=== PATIENT | male | born 1940 | race American Indian/Alaskan Native ===

== ENCOUNTER 2018-03-24 17:10 | Observation (INO) | payer MEDICARE ==
--- NOTE | 2018-03-24 17:58 | ED PDOC ---
HPI: Altered Mental Status Time Seen by Provider: 03/24/18 17:24 Chief Complaint (Nursing): Altered Mental Status Chief Complaint (Provider): Altered Mental Status History/Exam Limitations: Clinical Condition (Altered Mental Status ) Onset/Duration Of Symptoms: Hrs (today) Additional Complaint(s): Cali Pearson is a 77 year old male who has a past medical history of C-5 fracture, dementia and Parkinson who was brought to the emergency department [facility] after patient was found on the floor. It is unclear as to how the patient got there. He is normally communicative but is not responding verbally. Patient is not able to provide any history at current time. No other medical complaints. PMD: No Provider NIHSS Stroke Scale - How Severe is the Stroke Level of Consciousness: 0=Alert LOC to Questions: 2=Neither correct LOC to commands: 0=Obeys both correctly Best Gaze: 0=Normal Visual: 0=No visual loss Facial: 0=Normal Motor Arm - Left: 0=No drift Motor Arm - Right: 0=No drift Motor Leg - Left: 0=No drift Motor Leg - Right: 0=No drift Limb Ataxia: 0=Absent Sensory: 0=Normal Best Language: 3=Mute Dysarthia: 2=Severe, near unintelligible or worse Extinction & Inattention (Neglect): 0=Normal, no object Score: 7 Past Medical History Reviewed: Historical Data, Nursing Documentation, Vital Signs Vital Signs: Last Vital Signs Temp 97.6 F 03/24/18 17:11 Pulse 73 03/24/18 17:11 Resp 22 03/24/18 17:11 BP 105/64 03/24/18 17:11 Pulse Ox 97 03/24/18 17:11 - Medical History PMH: Dementia, Parkinson's Disease Other PMH: C-5 fracture - Surgical History Surgical History: No Surg Hx - Family History Family History: States: Unknown Family Hx - Living Arrangements Living Arrangements: Prison/Assist Lvng - Home Medications Home Medications: Ambulatory Orders Medication Instructions Recorded Acetaminophen [Tylenol 325mg tab] 650 mg PO Q4 PRN 03/24/18 Acetaminophen [Tylenol 325mg tab] 650 mg PO Q4 PRN 03/24/18 Apixaban [Eliquis] 5 mg PO Q12 03/24/18 Aspirin [Ecotrin] 81 mg PO DAILY 03/24/18 Atorvastatin [Lipitor] 10 mg PO HS 03/24/18 Bacitracin OINT 1 appl TOP BID 03/24/18 Carbidopa/Levodopa 25/100 mg 1.5 mg PO Q8 03/24/18 [Sinemet] Carvedilol [Coreg] 6.25 mg PO Q12 03/24/18 Donepezil [Aricept] 10 mg PO HS 03/24/18 Ergocalciferol (Vitamin D2) 50,000 unit PO SUN 03/24/18 [Vitamin D2] Gabapentin [Neurontin] 300 mg PO Q8 03/24/18 Mag Hydrox/Aluminum Hyd/Simeth 30 ml PO Q4 PRN 03/24/18 [Maalox Advanced Suspension] Magnesium Hydroxide [Milk Of 30 ml PO DAILY PRN 03/24/18 Magnesia] Tamsulosin [Flomax] 0.4 mg PO HS 03/24/18 amLODIPine [Norvasc] 10 mg PO DAILY 03/24/18 - Allergies Allergies/Adverse Reactions: Allergies Allergy/AdvReac Type Severity Reaction Status Date / Time No Known Allergies Allergy Verified 03/24/18 17:15 Review of Systems Review Of Systems: ROS cannot be obtained secondary to pt's inabilty to answer questions. Neurological: Positive for: Altered Mental Status Physical Exam - Reviewed Nursing Documentation Reviewed: Yes Vital Signs Reviewed: Yes - Physical Exam Appears: Positive for: No Acute Distress Head Exam: Positive for: NORMOCEPHALIC. Negative for: ATRAUMATIC (old abrasion on forehead) Skin: Positive for: Normal Color, Warm, Dry Eye Exam: Positive for: Normal appearance, EOMI, PERRL ENT: Positive for: Normal ENT Inspection Neck: Positive for: Normal (In cervical collar ) Cardiovascular/Chest: Positive for: Regular Rate, Rhythm. Negative for: Murmur Respiratory: Positive for: Normal Breath Sounds. Negative for: Respiratory Distress Gastrointestinal/Abdominal: Positive for: Normal Exam, Soft. Negative for: Tenderness Back: Positive for: Normal Inspection. Negative for: L CVA Tenderness, R CVA Tenderness Extremity: Positive for: Normal ROM (can move all 4 extremities ). Negative for: Tenderness (hip bilaterally), Calf Tenderness, Deformity (hip bilaterally ), Swelling Neurologic/Psych: Positive for: Alert (Can open eyes but does not respond verbally ). Negative for: Motor/Sensory Deficits (Equal strength bilaterally) - Laboratory Results Result Diagrams: 03/24/18 17:53 03/24/18 17:53 - ECG O2 Sat by Pulse Oximetry: 97 (RA) Pulse Ox Interpretation: Normal Medical Decision Making Medical Decision Making: Time: 17:24 Initial Plan: --CT Head w/o contrast CT STAT --EKG Stat --CMP --CBC with differential stat --Glucose, POC routine --Pelvis one view [RAD] STAT Scribe Attestation: Documented by Samuel Partida, acting as a scribe for Kevyn Reyes MD. Provider Scribe Attestation: All medical record entries made by the Scribe were at my direction and personally dictated by me. I have reviewed the chart and agree that the record accurately reflects my personal performance of the history, physical exam, medical decision making, and the department course for this patient. I have also personally directed, reviewed, and agree with the discharge instructions and disposition. Disposition - Clinical Impression Clinical Impression: Altered mental status - Patient ED Disposition Is Patient to be Admitted: Transfer of Care - Disposition Disposition: Transfer of Care Disposition Time: 19:04 Condition: FAIR Forms: Abazab (Mongolian) Patient Signed Over To: Ricco Valverde
[2018-03-24 18:00] LABS: BASO # 0.1 K/uL (0.0-0.2); BASO % 0.9 % (0.0-2.0); EOS # 0.5 K/uL (0.0-0.7); EOS % 6.5 % (0.0-4.0); HEMOGLOBIN 12.8 g/dL (12.0-18.0); LYMPH # 1.3 K/uL (1.0-4.3); LYMPH % 16.6 % (20.0-40.0); MEAN CELL VOLUME 81.6 fl (80.0-94.0); MEAN CORPUSCULAR HEMOGLOBIN 26.6 pg (27.0-31.0); MEAN CORPUSCULAR HGB CONC 32.6 g/dL (33.0-37.0); MEAN PLATELET VOLUME 9.2 fl (7.2-11.7); MONO # 0.3 K/uL (0.0-0.8); MONO % 4.3 % (0.0-10.0); NEUT # 5.6 K/uL (1.8-7.0); NEUT % 71.7 % (50.0-75.0); NRBC % 0.3 % (0.0-0.0); RBC 4.81 Mil/uL (4.40-5.90); RED CELL DISTRIBUTION WIDTH 15.6 % (11.5-14.5); WHITE BLOOD COUNT 7.8 K/uL (4.8-10.8)
[2018-03-24 18:08] LABS: ALBUMIN 3.7 g/dL (3.5-5.0); BLOOD UREA NITROGEN 13 mg/dl (9-20); CALCIUM 9.4 mg/dL (8.4-10.2); GFR NON-AFRICAN AMERICAN > 60
[2018-03-24 18:09] LABS: ALT/SGPT 17 U/L (21-72); AST/SGOT 39 U/L (17-59)
--- NOTE | 2018-03-24 19:53 | ED PDOC ---
- Laboratory Results Result Diagrams: 03/24/18 17:53 03/24/18 17:53 - ECG O2 Sat by Pulse Oximetry: 97 (RA) Medical Decision Making Medical Decision Makin:00 -Patient endorsed to provider by Dr. Reyes, pending work up 2100 --Patient much more alert and awake, conversing normally as he does according to family --Will admit for possible syncope Disposition - Clinical Impression Clinical Impression: Altered mental status, Syncope - POA Present On Arrival: None - Disposition Disposition: Hospitalized as Observation Patient Disposition Time: 21:00 Condition: FAIR
[2018-03-24] MEDS ORDERED: Magnesium Hydroxide Susp 30 ml UD PO PRN (20:39)
[2018-03-24] MEDS ORDERED: Alum-Mag Hydrox-Simethicone Susp (30 mL) PO PRN (20:39)
[2018-03-24 22:42] VITALS: RESP 18
[2018-03-24] MEDS ORDERED: Pneumococcal 23-Valent Vaccine IM ONE (23:38)
[2018-03-25 06:35] LABS: BASO % 0.9 % (0.0-2.0); EOS # 0.7 K/uL (0.0-0.7); EOS % 12.6 % (0.0-4.0); HEMOGLOBIN 13.4 g/dL (12.0-18.0); LYMPH # 1.9 K/uL (1.0-4.3); LYMPH % 35.3 % (20.0-40.0); MEAN CELL VOLUME 80.2 fl (80.0-94.0); MEAN CORPUSCULAR HEMOGLOBIN 26.4 pg (27.0-31.0); MEAN CORPUSCULAR HGB CONC 32.9 g/dL (33.0-37.0); MEAN PLATELET VOLUME 9.1 fl (7.2-11.7); MONO # 0.3 K/uL (0.0-0.8); MONO % 6.1 % (0.0-10.0); NEUT # 2.4 K/uL (1.8-7.0); NEUT % 45.1 % (50.0-75.0); NRBC % 0.1 % (0.0-0.0); RBC 5.07 Mil/uL (4.40-5.90); RED CELL DISTRIBUTION WIDTH 15.1 % (11.5-14.5); WHITE BLOOD COUNT 5.3 K/uL (4.8-10.8)
[2018-03-25 06:54] LABS: ALBUMIN 3.6 g/dL (3.5-5.0); ALT/SGPT 17 U/L (21-72); AST/SGOT 33 U/L (17-59); BLOOD UREA NITROGEN 11 mg/dl (9-20); CALCIUM 9.3 mg/dL (8.4-10.2); GFR NON-AFRICAN AMERICAN > 60
[2018-03-25 08:08] VITALS: O2SAT 100
--- NOTE | 2018-03-25 08:12 | CP.PCM.HP ---
History of Present Illness - History of Present Illness History of Present Illness: pt admitted for fall at [facility]. pt w/ abrasion to forehead, no bleeding. imaging results pending. pt in hard collar for "c5 fx"-old no complaints offered at this time. minimally verbal. bw noted. neuro consult pending. Present on Admission - Present on Admission Any Indicators Present on Admission: No Review of Systems - Constitutional Constitutional: Frequent Falls Past Patient History - Infectious Disease Hx of Infectious Diseases: None - Past Medical History & Family History Past Medical History?: Yes - Past Social History Smoking Status: Former Smoker - CARDIAC Hx Hypercholesterolemia: Yes Hx Hypertension: Yes - PULMONARY Hx Respiratory Disorders: No - NEUROLOGICAL Hx Dementia: Yes Hx Parkinson's Disease: Yes - HEENT Hx HEENT Problems: No - RENAL Hx Chronic Kidney Disease: No - ENDOCRINE/METABOLIC Hx Endocrine Disorders: No - HEMATOLOGICAL/ONCOLOGICAL Hx Blood Disorders: No Hx AIDS: No Hx Human Immunodeficiency Virus (HIV): No - INTEGUMENTARY Hx Dermatological Problems: No - MUSCULOSKELETAL/RHEUMATOLOGICAL Hx Musculoskeletal Disorders: Yes Hx Falls: Yes Hx Fractures: Yes (C5) - GASTROINTESTINAL Hx Gastrointestinal Disorders: No - GENITOURINARY/GYNECOLOGICAL Hx Prostate Problems: Yes - PSYCHIATRIC Hx Psychophysiologic Disorder: No Hx Substance Use: No - SURGICAL HISTORY Hx Surgeries: No - ANESTHESIA Hx Anesthesia: No Meds Allergies/Adverse Reactions: Allergies Allergy/AdvReac Type Severity Reaction Status Date / Time No Known Allergies Allergy Verified 03/24/18 17:15 Physical Exam - Constitutional Appears: Well, Non-toxic, No Acute Distress - Head Exam Head Exam: ATRAUMATIC, NORMAL INSPECTION, NORMOCEPHALIC - Eye Exam Eye Exam: EOMI, Normal appearance, PERRL Pupil Exam: NORMAL ACCOMODATION, PERRL - ENT Exam ENT Exam: Mucous Membranes Moist, Normal Exam - Neck Exam Neck exam: Positive for: Normal Inspection - Respiratory Exam Respiratory Exam: Clear to Auscultation Bilateral, NORMAL BREATHING PATTERN - Cardiovascular Exam Cardiovascular Exam: REGULAR RHYTHM, RRR, +S1, +S2 - GI/Abdominal Exam GI & Abdominal Exam: Normal Bowel Sounds, Soft. absent: Tenderness - Extremities Exam Extremities exam: Positive for: full ROM, normal capillary refill, normal inspection, pedal pulses present - Back Exam Back exam: FULL ROM, NORMAL INSPECTION - Neurological Exam Neurological exam: Alert, CN II-XII Intact, Normal Gait, Oriented x3, Reflexes Normal - Psychiatric Exam Psychiatric exam: Normal Affect, Normal Mood - Skin Skin Exam: Dry, Intact, Normal Color, Warm Results - Vital Signs Recent Vital Signs: Last Vital Signs Temp 97.9 F 03/25/18 08:07 Pulse 60 03/25/18 08:07 Resp 18 03/25/18 08:07 BP 130/77 03/25/18 08:07 Pulse Ox 100 03/25/18 08:07 - Labs Result Diagrams: 03/25/18 05:12 03/25/18 05:12 Labs: Laboratory Results - last 24 hr 03/24/18 03/24/18 03/24/18 17:20 17:53 17:53 WBC 7.8 RBC 4.81 Hgb 12.8 Hct 39.3 MCV 81.6 MCH 26.6 L MCHC 32.6 L RDW 15.6 H Plt Count 298 MPV 9.2 Neut % (Auto) 71.7 Lymph % (Auto) 16.6 L [place] % (Auto) 4.3 Eos % (Auto) 6.5 H Baso % (Auto) 0.9 Neut # (Auto) 5.6 Lymph # (Auto) 1.3 [place] # (Auto) 0.3 Eos # (Auto) 0.5 Baso # (Auto) 0.1 Sodium 139 Potassium 4.3 Chloride 108 H Carbon Dioxide 23 Anion Gap 12 BUN 13 Creatinine 0.7 L Est GFR ( Amer) > 60 Est GFR (Non-Af Amer) > 60 POC Glucose (mg/dL) 136 H Random Glucose 143 H Calcium 9.4 Phosphorus Magnesium Total Bilirubin 0.6 AST 39 ALT 17 L Alkaline Phosphatase 47 Troponin I Total Protein 7.6 Albumin 3.7 Globulin 3.9 Albumin/Globulin Ratio 1.0 Vitamin B12 TSH 3rd Generation 03/24/18 03/25/18 03/25/18 20:03 05:12 05:12 WBC 5.3 RBC 5.07 Hgb 13.4 Hct 40.6 MCV 80.2 MCH 26.4 L MCHC 32.9 L RDW 15.1 H Plt Count 243 MPV 9.1 Neut % (Auto) 45.1 L Lymph % (Auto) 35.3 [place] % (Auto) 6.1 Eos % (Auto) 12.6 H Baso % (Auto) 0.9 Neut # (Auto) 2.4 Lymph # (Auto) 1.9 [place] # (Auto) 0.3 Eos # (Auto) 0.7 Baso # (Auto) 0.0 Sodium 141 Potassium 4.0 Chloride 106 Carbon Dioxide 29 Anion Gap 10 BUN 11 Creatinine 0.6 L Est GFR ( Amer) > 60 Est GFR (Non-Af Amer) > 60 POC Glucose (mg/dL) Random Glucose 100 Calcium 9.3 Phosphorus 3.8 Magnesium 2.0 Total Bilirubin 0.4 AST 33 ALT 17 L Alkaline Phosphatase 64 Troponin I < 0.0120 Total Protein 7.2 Albumin 3.6 Globulin 3.6 Albumin/Globulin Ratio 1.0 Vitamin B12 312 TSH 3rd Generation 0.41 L Assessment & Plan (1) DVT prophylaxis Assessment and Plan: scd nad ae hose eliquis Status: Acute (2) Altered mental status Assessment and Plan: neuro final imaging reports cont home meds ?? syncope vs mechanical fall Status: Acute Decision To Admit - Pt Status Changed To: Hospital Disposition Of: Observation - . Bed Request Type: Telemetry Admitting Physician: Leonard Pineda
--- NOTE | 2018-03-25 08:28 | CT ---
Date of service: 03/24/2018 PROCEDURE: CT HEAD WITHOUT CONTRAST. HISTORY: r/o bleed COMPARISON: None available. TECHNIQUE: Axial computed tomography images were obtained through the head/brain without intravenous contrast. Radiation dose: Total exam DLP = 1680.7 mGy-cm. This CT exam was performed using one or more of the following dose reduction techniques: Automated exposure control, adjustment of the mA and/or kV according to patient size, and/or use of iterative reconstruction technique. FINDINGS: HEMORRHAGE: No intracranial hemorrhage. BRAIN: No mass effect or edema. Atrophy. Chronic microvascular ischemic changes. 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 VENTRICLES: Unremarkable. No hydrocephalus. CALVARIUM: Unremarkable. PARANASAL SINUSES: Unremarkable as visualized. No significant inflammatory changes. MASTOID AIR CELLS: Unremarkable as visualized. No inflammatory changes. OTHER FINDINGS: None. IMPRESSION: No acute intracranial pathology. Age-related changes.
--- NOTE | 2018-03-25 08:34 | RAD ---
Date of service: 03/24/2018 PROCEDURE: Radiographs of the pelvis. HISTORY: trauma COMPARISON: None. FINDINGS: BONES: Pelvic Bones: No acute fracture. Hips: Joint space narrowing with osteophytosis. JOINTS: Sacroiliac Joints: Unremarkable. Pubic Symphysis: Unremarkable. OTHER FINDINGS: None. IMPRESSION: No demonstrated fracture or dislocation. Bilateral hip degenerative changes.
--- NOTE | 2018-03-25 08:34 | RAD ---
Date of service: 03/24/2018 PROCEDURE: CHEST RADIOGRAPH, 1 VIEW HISTORY: syncope COMPARISON: None available. FINDINGS: LUNGS: Clear. PLEURA: No pneumothorax or pleural fluid seen. CARDIOVASCULAR: Atherosclerotic aortic calcifications. Cardiomediastinal silhouette enlarged. OSSEOUS STRUCTURES: Degenerative changes. VISUALIZED UPPER ABDOMEN: Normal. OTHER FINDINGS: None. IMPRESSION: No active disease.
[2018-03-25] MEDS ORDERED: Bacitracin OINT 15GM TOP SCH (09:00)
--- NOTE | 2018-03-25 09:29 | CARD ---
APPROVED REPORT Date of service: 03/24/2018 EKG Measurement Heart [id number] CT [id number] <Conclusion> Sinus bradycardia Left axis deviation Abnormal ECG
--- NOTE | 2018-03-25 09:42 | CT ---
Date of service: 03/24/2018 PROCEDURE: CT Cervical Spine without contrast HISTORY: fall COMPARISON: None available. TECHNIQUE: Axial computed tomography images were obtained of the cervical spine without the use of intravenous contrast. Coronal and sagittal reformatted images were created and reviewed. Radiation dose: Total exam DLP = 257.7 mGy-cm. This CT exam was performed using one or more of the following dose reduction techniques: Automated exposure control, adjustment of the mA and/or kV according to patient size, and/or use of iterative reconstruction technique. FINDINGS: VERTEBRAE: No fracture. Mild multilevel loss of vertebral body height. Normal alignment. No destructive bony lesion. DISCS/SPINAL CANAL/NEURAL FORAMINA: No significant central canal or neural foraminal stenosis. Multilevel disc space narrowing. PARASPINAL SOFT TISSUES: Unremarkable. OTHER FINDINGS: None. IMPRESSION: No acute fracture. Multilevel degenerative changes.
[2018-03-25 16:24] VITALS: BP 97/51; PULSE 68; TEMP 98.3
[2018-03-25 16:55] LABS: RAPID PLASMA REAGIN REACTIVE (NONREACTIVE)
[2018-03-26] MEDS ORDERED: Ergocalciferol 50,000 Intl Units Cap PO SCH (09:00)
[2018-03-27 12:49] LABS: FOLATE 7.1 ng/mL
--- NOTE | 2018-03-28 08:44 | CON ---
DATE: 03/25/2018 NEUROLOGY CONSULTATION CHIEF COMPLAINT: Status post fall at [facility]. HISTORY OF PRESENT ILLNESS: This is a 77-year-old man with history of AFib on Eliquis, history of dementia, Parkinson's-induced dementia, Parkinson's disease on Sinemet 25/100 p.o. t.i.d., deconditioned state, and history of old C5 fracture, whose family [facility], had an abrasion on the forehead. CAT scan of the head showed no acute intracranial abnormalities. The patient is very deconditioned status. The patient has gabapentin, which I feel that needs to be discontinued due to side effects of dizziness. The patient is seen mildly dehydrated as well at this time. No focal weakness, following simple commands. PAST MEDICAL HISTORY: As above. SOCIAL HISTORY: No illicit drug use, smoking, or EtOH abuse. REVIEW OF SYSTEMS: A 14-point review of systems is negative except in the HPI. FAMILY HISTORY: Noncontributory. MEDICATIONS: Reviewed by nurse reconciliation sheet. ALLERGIES: NO KNOWN DRUG ALLERGIES. LABORATORY DATA: Sodium is 141, potassium 4, chloride 106, carbon dioxide 29, BUN of 10, and creatinine of 0.6. Random glucose 100. PHYSICAL EXAMINATION: GENERAL: The patient is sitting up in bed, in no acute distress. HEENT: Atraumatic and normocephalic. PERRLA. Extraocular muscles intact. NECK: Supple. No JVD. No adenopathy noted. LUNGS: Clear to auscultation. No adventitious sounds. HEART: S1 and S2. Normal rate and rhythm. No murmurs, rubs or gallops. ABDOMEN: Soft, nontender, and nondistended. Bowel sounds are present. EXTREMITIES: No clubbing. No cyanosis. Peripheral pulses 2+ bilaterally. NEUROLOGIC: The patient is alert, , oriented to person and place, thought process. He has poor cognition. Cranial nerves II through XII intact. Motor: Increased tone throughout at the wrist. Moves all extremities equally. Sensory: Decreased light touch and pinprick up to the calves bilaterally. Decreased vibration at the toes. DTRs are 2+ throughout and 1 at both knees and ankles. Coordination: [place]-ao-fqpp intact. No dysmetria noted. Gait is deferred for now. ASSESSMENT AND PLAN: A 77-year-old man with past medical history of Parkinson's disease on Sinemet 25/100 p.o. three times a day, history of C5 fracture, fall in the past, hypertension, dyslipidemia, deconditioned state, Parkinson's-induced dementia, who [facility] with an abrasion on the forehead. CAT scan of the head showed no acute intracranial abnormalities. The patient is very deconditioned. RECOMMENDATIONS: At this time, we will recommend: 1. IV hydration. 2. PT/OT evaluation and will need probable surgical therapy in the [facility] as well as gait and balance exercise and muscle strengthening. 3. We will recommend to discontinue the gabapentin, which can make the patient dizzy and also have falls. 4. Orthostatic vital signs. 5. Continue on current present medical management. Thank you for this consult. Jacinto Page MD
--- NOTE | 2018-03-29 10:18 | CP.PCM.DIS ---
Provider - Provider Date of Admission: 03/24/18 20:03 Attending physician: Leonard Pineda MD Time Spent in preparation of Discharge (in minutes): 15 Diagnosis - Discharge Diagnosis (1) Altered mental status Status: Acute (2) DVT prophylaxis Status: Acute Hospital Course - Lab Results Lab Results: Most Recent Lab Values WBC 5.3 K/uL (4.8-10.8) 03/25/18 05:12 RBC 5.07 Mil/uL (4.40-5.90) 03/25/18 05:12 Hgb 13.4 g/dL (12.0-18.0) 03/25/18 05:12 Hct 40.6 % (35.0-51.0) 03/25/18 05:12 MCV 80.2 fl (80.0-94.0) 03/25/18 05:12 MCH 26.4 pg (27.0-31.0) L 03/25/18 05:12 MCHC 32.9 g/dL (33.0-37.0) L 03/25/18 05:12 RDW 15.1 % (11.5-14.5) H 03/25/18 05:12 Plt Count 243 K/uL (130-400) 03/25/18 05:12 MPV 9.1 fl (7.2-11.7) 03/25/18 05:12 Neut % (Auto) 45.1 % (50.0-75.0) L 03/25/18 05:12 Lymph % (Auto) 35.3 % (20.0-40.0) 03/25/18 05:12 [place] % (Auto) 6.1 % (0.0-10.0) 03/25/18 05:12 Eos % (Auto) 12.6 % (0.0-4.0) H 03/25/18 05:12 Baso % (Auto) 0.9 % (0.0-2.0) 03/25/18 05:12 Neut # (Auto) 2.4 K/uL (1.8-7.0) 03/25/18 05:12 Lymph # (Auto) 1.9 K/uL (1.0-4.3) 03/25/18 05:12 [place] # (Auto) 0.3 K/uL (0.0-0.8) 03/25/18 05:12 Eos # (Auto) 0.7 K/uL (0.0-0.7) 03/25/18 05:12 Baso # (Auto) 0.0 K/uL (0.0-0.2) 03/25/18 05:12 Sodium 141 mmol/l (132-148) 03/25/18 05:12 Potassium 4.0 MMOL/L (3.6-5.0) 03/25/18 05:12 Chloride 106 mmol/L (98-107) 03/25/18 05:12 Carbon Dioxide 29 mmol/L (22-30) 03/25/18 05:12 Anion Gap 10 (10-20) 03/25/18 05:12 BUN 11 mg/dl (9-20) 03/25/18 05:12 Creatinine 0.6 mg/dl (0.8-1.5) L 03/25/18 05:12 Est GFR ( Amer) > 60 03/25/18 05:12 Est GFR (Non-Af Amer) > 60 03/25/18 05:12 POC Glucose (mg/dL) 136 mg/dL (65-110) H 03/24/18 17:20 Random Glucose 100 mg/dL (75-110) 03/25/18 05:12 Calcium 9.3 mg/dL (8.4-10.2) 03/25/18 05:12 Phosphorus 3.8 mg/dl (2.5-4.5) 03/25/18 05:12 Magnesium 2.0 MG/DL (1.6-2.3) 03/25/18 05:12 Total Bilirubin 0.4 mg/dl (0.2-1.3) 03/25/18 05:12 AST 33 U/L (17-59) 03/25/18 05:12 ALT 17 U/L (21-72) L 03/25/18 05:12 Alkaline Phosphatase 64 U/L (38-126) 03/25/18 05:12 Troponin I < 0.0120 ng/mL (0.00-0.120) 03/24/18 20:03 Total Protein 7.2 G/DL (6.3-8.2) 03/25/18 05:12 Albumin 3.6 g/dL (3.5-5.0) 03/25/18 05:12 Globulin 3.6 gm/dL (2.2-3.9) 03/25/18 05:12 Albumin/Globulin Ratio 1.0 (1.0-2.1) 03/25/18 05:12 Vitamin B12 312 pg/mL (239-931) 03/25/18 05:12 Folate 7.1 ng/mL 03/25/18 05:12 TSH 3rd Generation 0.41 mIU/ML (0.46-4.68) L 03/25/18 05:12 RPR Titer 1:2 (NONREACTIVE) H 03/25/18 05:12 RPR Reactive (NONREACTIVE) H 03/25/18 05:12 - Hospital Course Hospital Course: neuro ct Discharge Exam - Head Exam Head Exam: ATRAUMATIC, NORMAL INSPECTION, NORMOCEPHALIC Discharge Plan - Follow Up Plan Condition: FAIR Disposition: TRANSF TO SNF Additional Instructions: final dx-ams, fall, old cva, old cerv spine fx cleared by neuro rted prn, meds per med rec
== END 2018-03-25 16:30 ==
LOC: H.ER 17:10 → MERGE 20:03 → H.ERHOLD 20:03 → H.TEL 22:25
PROVIDERS: ADMIT Family Medicine; ATTEND Family Medicine
DX: R55 Syncope and collapse (principal); F03.90 Unspecified dementia, unspecified severity, without behavioral disturbance, psychotic disturbance, mood disturbance, and anxiety; G20 Parkinson's disease; I10 Essential (primary) hypertension; S12.400D Unspecified displaced fracture of fifth cervical vertebra, subsequent encounter for fracture with routine healing; W19.XXXD Unspecified fall, subsequent encounter; Y92.129 Unspecified place in nursing home as the place of occurrence of the external cause; Z79.01 Long term (current) use of anticoagulants; Z79.82 Long term (current) use of aspirin; Z87.891 Personal history of nicotine dependence; Z79.899 Other long term (current) drug therapy; E78.00 Pure hypercholesterolemia, unspecified; Z23 Encounter for immunization; E78.5 Hyperlipidemia, unspecified; E86.0 Dehydration; I48.91 Unspecified atrial fibrillation; S00.81XA Abrasion of other part of head, initial encounter
CPT/HCPCS: 36415; 70450; 71045; 72125; 72170; 80053; 82607; 82746; 82948; 83735; 84100; 84443; 84484; 85025; 86592; 86780; 90471; 90472; 90732; 93005; 99285; G0378; Q2035